=== PATIENT | female | born 1990 | race Two or more races ===

== ENCOUNTER 2025-01-27 18:42 | Emergency (ER) | payer OTHER ==
[~2025-01-27] VITALS: Ht 154.9 cm; Wt 74.4 kg
[2025-01-27] MEDS ORDERED: MORPHINE SULFATE INJ 4 MG/ML DISP.SYRIN ONE (19:28)
[2025-01-27] MEDS: MORPHINE SULFATE INJ 2 MG/ML DISP.SYRIN IV ONE (19:31)
[2025-01-27 19:39] LABS: HEMOGLOBIN 9.4 g/dL (11.5-14.8)
[2025-01-27 19:44] LABS: BASOPHILS # (AUTO) 0.1 K/uL (0.0-0.2); BASOPHILS % (AUTO) 0.6 % (0.0-2.0); EOSINOPHILS # (AUTO) 0.3 K/uL (0.0-0.7); EOSINOPHILS % (AUTO) 2.4 % (0.0-6.0); HEMATOCRIT 28 % (33-45); LYMPHOCYTES # (AUTO) 2.4 K/uL (0.8-4.8); LYMPHOCYTES % (AUTO) 20.8 % (20.0-44.0); MEAN CORPUSCULAR HEMOGLOBIN 29 PG (26.0-33.0); MEAN CORPUSCULAR HGB CONC 33 g/dl (31.0-36.0); MEAN CORPUSCULAR VOLUME 87 fL (82-100); MONOCYTES # (AUTO) 0.5 K/uL (0.1-1.30); MONOCYTES % (AUTO) 4.5 % (2.0-12.0); NEUTROPHILS # (AUTO) 8.1 K/uL (1.8-8.9); NEUTROPHILS % (AUTO) 71.7 % (43.0-81.0); PLATELET COUNT (AUTO) 556 K/uL (150-450); RED BLOOD CELL COUNT(AUTO) 3.22 MIL/uL (4.0-5.2); RED CELL DISTRIBUTION WIDTH 14.3 % (11.5-15.0); WHITE BLOOD COUNT (AUTO) 11.3 K/uL (4.3-11.0)
[2025-01-27] MEDS ORDERED: IOHEXOL-300 100 ML VIAL IV ONE (19:46)
[2025-01-27] MEDS ORDERED: IV NS 0.9% 250 ML IV ONE (19:47)
[2025-01-27 20:01] LABS: CREATININE 0.8 mg/dL (0.6-1.3)
[2025-01-27 20:12] LABS: INR 1.05 (0.91-1.10); PROTHROMBIN TIME 11.1 SECS (9.2-11.1)
[2025-01-27] MEDS ORDERED: OXYC-128 PO (21:27)
[2025-01-27 21:52] VITALS: BP 118/84; TEMP 98.4; O2SAT 100
== END 2025-01-27 22:07 | disposition home or self-care (01) ==
LOC: ER 18:48
DX: K91.873 Postprocedural seroma of a digestive system organ or structure following other procedure (principal); R10.31 Right lower quadrant pain
CPT/HCPCS: 99285; 74177; 96374; 85025; 80048; 85610; 36415; J2270; J7050; Q9967

== ENCOUNTER 2025-09-12 19:10 | Emergency (ER) | payer MEDICAID, OTHER ==
[~2025-09-12] VITALS: Ht 157.5 cm; Wt 72.6 kg
[~2025-09-12 19:10] MED LIST: OXYC-128 PO
[2025-09-12 20:20] VITALS: TEMP 98.5
[2025-09-12] MEDS ORDERED: KETOROLAC TROMETHAMINE INJ 30 MG/ML VIAL ONE (20:41)
[2025-09-12] MEDS ORDERED: ACETAMINOPHEN ES 500 MG TABLET ONE (20:41)
[2025-09-12 20:51] LABS: PREGNANCY TEST URINE QUAL NEGATIVE (NEGATIVE)
[2025-09-12 20:52] LABS: APPEARANCE,URINE CLEAR (CLEAR); BLOOD, URINE NEGATIVE Ery/uL (NEGATIVE); LEUKOCYTE ESTERASE ,URINE NEGATIVE (NEGATIVE); NITRITE, URINE NEGATIVE (NEGATIVE); UGLUCOSE NEGATIVE (NEGATIVE)
[2025-09-12] MEDS: ACETAMINOPHEN ES 500 MG TABLET PO ONE (20:54)
[2025-09-12] MEDS: KETOROLAC TROMETHAMINE INJ 30 MG/ML VIAL IM ONE (20:54)
[2025-09-12 21:11] LABS: SQUAMOUS EPITHELIAL CELL,UR Many /HPF (None Seen)
[2025-09-12 21:12] LABS: ADD URINE CULTURE YES
[2025-09-12] MEDS ORDERED: TRAM50TA2 PO ×2 (21:50→22:09)
[2025-09-12] MEDS ORDERED: NITR100C6 PO (21:50)
[2025-09-12 22:16] VITALS: BP 122/79; O2SAT 98
== END 2025-09-12 22:16 | disposition home or self-care (01) ==
LOC: ER 19:15
DX: S60.221A Contusion of right hand, initial encounter (principal); S60.222A Contusion of left hand, initial encounter; N39.0 Urinary tract infection, site not specified; Y04.0XXA Assault by unarmed brawl or fight, initial encounter; Y93.89 Activity, other specified; Y92.89 Other specified places as the place of occurrence of the external cause; Y99.9 Unspecified external cause status
CPT/HCPCS: 99284; 96372; 73130 ×2; 84703; 81001; J1885; 87086-TC